=== PATIENT | female | born 2000 | race African-American/Black ===

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

== ENCOUNTER 2019-03-13 20:23 | Emergency (ER) | payer MEDICAID ==
[~2019-03-13] VITALS: Ht 157.5 cm; Wt 49.2 kg
[2019-03-13] MEDS ORDERED: FLUORESCEIN SODIUM 1MG/STRIP RIGHTEYE ONE (21:00)
[2019-03-13] MEDS ORDERED: TETRACAINE 0.5% OPHTH DROPS 4ML RIGHTEYE ONE (21:00)
[2019-03-13] MEDS: IBUPROFEN 400MG TABLET PO ONE (21:14)
[2019-03-13 21:46] VITALS: BP 102/71
== END 2019-03-13 21:47 | disposition home or self-care (01) ==
LOC: ER 20:23
DX: S00.11XA Contusion of right eyelid and periocular area, initial encounter (principal); H11.31 Conjunctival hemorrhage, right eye; F17.200 Nicotine dependence, unspecified, uncomplicated; Y04.0XXA Assault by unarmed brawl or fight, initial encounter; Y93.89 Activity, other specified; Y92.89 Other specified places as the place of occurrence of the external cause; Y99.8 Other external cause status
CPT/HCPCS: 99283

== ENCOUNTER 2019-09-12 00:29 | Emergency (ER) | payer MEDICAID ==
[~2019-09-12] VITALS: Ht 165.1 cm; Wt 57.0 kg
[2019-09-12] MEDS ORDERED: LORAZEPAM 2MG/ML CPJ IM NR (01:56)
[2019-09-12] MEDS ORDERED: HALOPERIDOL LACTATE 5MG/ML VIAL IM NR (01:56)
[2019-09-12 02:25] LABS: BASOPHILS % 0.8 % (0.0-2.0); EOSINOPHILS % 0.2 % (0.0-5.0); HEMATOCRIT. 37.9 % (36.0-48.0); HEMOGLOBIN. 13.3 g/dL (12.0-16.0); LYMPHOCYTES % 36.2 % (20.0-50.0); MEAN CORPUSCULAR HEMOGLOBIN 27.8 pg (28.0-32.0); MEAN CORPUSCULAR VOLUME 79.3 fL (81.0-99.0); MEAN PLATELET VOLUME 7.6 fl (7.4-10.4); MONOCYTES % 7.5 % (2.0-8.0); NEUTROPHILS % 55.3 % (40.0-76.0); PLATELET 258 x1000/uL (130-400); RED BLOOD CELL COUNT 4.77 mill/uL (4.2-5.4); RED CELL DISTRIBUTION WIDTH 14.4 % (11.6-14.6)
[2019-09-12 02:28] LABS: CHLORIDE 104 mEq/L (98-107)
[2019-09-12 02:29] LABS: CLARITY URINE TURBID (CLEAR); COLOR URINE DARK YELLOW (YELLOW); KETONES URINE 3+ (NEGATIVE); LEUKOCYTE ESTERASE URINE 1+ (NEGATIVE); NITRITE URINE NEGATIVE (NEGATIVE); OCCULT BLOOD URINE NEGATIVE (NEGATIVE); PH URINE 5.5 (4.5-8.0); PROTEIN URINE 3+ (NEGATIVE); SPECIFIC GRAVITY URINE 1.033 (1.005-1.030)
[2019-09-12 02:32] LABS: ETHANOL BLOOD < 10 mg/dL
[2019-09-12 02:34] LABS: HCG SCREEN NEGATIVE
[2019-09-12 02:37] LABS: CREATINE KINASE 100 IU/L (26-192)
[2019-09-12 02:49] LABS: OPIATES URINE SCREEN NEGATIVE (NEGATIVE)
[2019-09-12 02:50] LABS: *AMPHETAMINES SCREEN URINE NEGATIVE (NEGATIVE); *BARBITURATES SCREEN URINE NEGATIVE (NEGATIVE); *BENZODIAZEPINES SCREEN URINE NEGATIVE (NEGATIVE); *COCAINE SCREEN URINE NEGATIVE (NEGATIVE); PHENCYCLIDINE URINE SCREEN NEGATIVE (NEGATIVE)
[2019-09-12 02:51] LABS: METHADONE URINE SCREEN NEGATIVE (NEGATIVE)
[2019-09-12 02:59] LABS: CANNABINOID URINE SCREEN PRESUMTIVE POSITIVE (NEGATIVE)
[2019-09-12 05:14] VITALS: BP 121/74
== END 2019-09-12 05:15 | disposition home or self-care (01) ==
LOC: ER 00:29
DX: F41.9 Anxiety disorder, unspecified (principal); F91.8 Other conduct disorders; Z78.1 Physical restraint status
CPT/HCPCS: 36415; 80053; 80305; 80307; 80320; 80329; 81003; 81025; 82550; 84443; 84703; 85025; 99283; 99285; J1630; J2060; G0480